=== PATIENT | male | born 1970 | race Hispanic/Latino ===

== ENCOUNTER 2020-03-24 12:22 | Emergency (ER) | payer BC ==
[~2020-03-24] VITALS: Ht 160 cm; Wt 98.4 kg
--- NOTE | 2020-03-24 13:54 | Diagnostic Imaging Report ---
EXAMINATION: CHEST SINGLE (PORTABLE) INDICATION: Fever, tachycardia COMPARISON: None FINDINGS: LINES/TUBES:None LUNGS:The lungs are well-inflated. No focal consolidation or pulmonary edema. PLEURA:No pleural effusion or pneumothorax. MEDIASTINUM:The cardiomediastinal silhouette appears normal in size and shape. BONES/SOFT TISSUES:No acute osseous injury. ABDOMEN:No free air under the diaphragm. IMPRESSION: No focal pneumonia or pulmonary edema. Signed by: Ainsley Devi MD on 03/24/2020 1:50 PM
--- NOTE | 2020-03-24 13:55 | Diagnostic Imaging Report ---
EXAMINATION: KNEE RIGHT THREE VIEWS INDICATION: Knee pain COMPARISON: None FINDINGS: No acute fracture or dislocation. Alignment is anatomic. Small suprapatellar joint effusion. IMPRESSION: No acute osseous injury. Small suprapatellar joint effusion. Signed by: Ainsley Devi MD on 03/24/2020 1:52 PM
--- NOTE | 2020-03-24 14:20 | Emergency Department Note ---
History of Present Illnes History of Present Illness Chief Complaint: General Medicine Complaints History of Present Illness This is a 49 year old male arrives to the ED with atrumatic right- sided knee pain- pt states it feels like the time he has his last meniscal injury. pt also with concerns of possible covid exposure Chief Complaint Comment PATIENT IN FROM HOME WITH COMPLAINTS OF RIGHT KNEE PAIN X 2 DAYS, DENIES FALL OR TRAUMA. STATES IT FEELS LIKE WHEN HE HAD A MENISCUS TEAR. PATIENT FOUND TO BE FEBRILE AND TACHYCARDIC IN TRIAGE. WORKS AT [employer] [employer] [facility] – [place] AND STATES THAT THERE HAVE BEEN WORKERS THAT TESTED POSITIVE THERE Historian: Patient Arrival Mode: Car Onset (how long ago): day(s) Severity: mild Onset quality: gradual Progression: waxing and waning Chronicity: recurrent Relieving factors: none Exacerbating factors: none Past Medical/Family History Physician Review I have reviewed the patient's past medical and family history. Any updates have been documented here. Past Medical History Recent Fever: Yes Clinical Suspicion of Infectio: Yes New/Unexplained Change in Ment: No Past Medical History: Diabetes, Hyperlipedemia Past Surgical History: Appendectomy Other Surgery: RIGHT KNEE SURGERY Social History Smoking Cessation: Never Smoker Counseling Performed: No Alcohol Use: None Any Illegal Drug Use: No TB Exposure/Symptoms: No Physically hurt or threatened: No Family History Family history of heart diseas: No Other Last Tetanus: < 10 YEARS Any Pre-Existing Lines (PICC,: No Is patient up to date on immun: Yes Last Flu: OOD Last Pneumovax: OOD Review of Systems Review of Systems Constitutional: Reports as per HPI EENTM: Reports no symptoms Cardiovascular: Reports no symptoms Respiratory: Reports no symptoms Gastrointestinal: Reports no symptoms Genitourinary: Reports no symptoms Musculoskeletal: Reports joint pain, Reports joint swelling Integumentary: Reports no symptoms Neurological: Reports no symptoms Psychological: Reports no symptoms Endocrine: Reports no symptoms Hematological/Lymphatic: Reports no symptoms Physical Exam Related Data Allergies: Coded Allergies: No Known Allergies (Unverified , 03/24/20) Triage Vital Signs Vital Signs Date Time Temp Pulse Resp B/P (MAP) Pulse Ox O2 Delivery O2 Flow Rate FiO2 03/24/20 12:32 101.0 112 24 150/86 97 Vital signs reviewed: Yes Physical Exam CONSTITUTIONAL Constitutional: Present well-developed, Present well-nourished HENT HENT: Present normocephalic, Present atraumatic, Present oropharynx clear/moist, Present nose normal HENT L/R: Present left ext ear normal, Present right ext ear normal EYES Eyes: Reports PERRL, Reports conjunctivae normal NECK Neck: Present ROM normal PULMONARY Pulmonary: Present effort normal, Present breath sounds normal CARDIOVASCULAR Cardiovascular: Present regular rhythm, Present heart sounds normal, Present capillary refill normal, Present normal rate GASTROINTESTINAL Abdominal: Present soft, Present nontender, Present bowel sounds normal GENITOURINARY Genitourinary: Present exam deferred SKIN Skin: Present warm, Present dry MUSCULOSKELETAL Musculoskeletal: Present tenderness, Present swelling, Present other (normal pulses) NEUROLOGICAL Neurological: Present alert, Present oriented x 3, Present no gross motor or sensory deficits PSYCHOLOGICAL Psychological: Present mood/affect normal, Present judgement normal Results Imaging Imaging results reviewed: Yes Impressions IMPRESSION: No acute osseous injury. Small suprapatellar joint effusion. Assessment & Plan Assessment & Plan Final Impression: (1) Knee contusion (2) COVID-19 Depart Disposition: HOME, SELF-CARE Last Vital Signs Date Time Temp Pulse Resp B/P (MAP) Pulse Ox O2 Delivery O2 Flow Rate FiO2 03/24/20 12:32 101.0 112 24 150/86 97 RENETTA SYED, Mar 24, 2020 14:20
== END 2020-03-24 14:46 | disposition home or self-care (01) ==
LOC: ER 12:22
DX: M25.561 Pain in right knee (principal); S80.01XA Contusion of right knee, initial encounter; U07.1 COVID-19; E78.5 Hyperlipidemia, unspecified; E11.9 Type 2 diabetes mellitus without complications
CPT/HCPCS: 71045; 87635; 99283